=== PATIENT | male | born 1980 | race American Indian/Alaskan Native ===

== ENCOUNTER 2021-07-20 13:31 | Outpatient (CLI) | payer OTHER ==
--- NOTE | 2021-07-20 17:06 | Ultrasound Report ---
ULTRASOUND THYROID INDICATION / CLINICAL INFORMATION: THYROID GOITER. COMPARISON: None available. FINDINGS: RIGHT LOBE: Size (cm) = 8.5 x 6.3 x 4.6 cm. LEFT LOBE: Size (cm) = 5.9 x 2.5 x 1.4 cm. ISTHMUS: Thickness (cm) = 0.5 cm. APPEARANCE: Heterogeneous. SMALL NODULES < 1 cm: None. NODULES >= 1 cm or SUSPICIOUS FEATURES (up to 4): - NODULE # 1 - Location: Right mid/lower - Maximum Size (cm): 6.2 cm - Significant Change (>= 20% in 2 dim. & inc. >= 2mm): No prior study - Composition: Solid = 2 points - Echogenicity: Hyperechoic or Isoechoic = 1 point - Shape: [id number]-[id number]-[id number] = 0 points - Margin: Smooth = 0 points - Echogenic Foci: Punctate echogenic foci = 3 points - Additional Echogenic Foci: None = 0 points - Additional Findings: None. - ACR TI-RADS Score / Category = 6 points / TI-RADS 4 - NODULE # 2 - Location: Right Upper - Maximum Size (cm): 2.5 cm - Significant Change (>= 20% in 2 dim. & inc. >= 2mm): No prior study - Composition: Solid = 2 points - Echogenicity: Hyperechoic or Isoechoic = 1 point - Shape: [id number]-[id number]-caei = 3 points - Margin: Smooth = 0 points - Echogenic Foci: None = 0 points - Additional Echogenic Foci: None = 0 points - Additional Findings: None. - ACR TI-RADS Score / Category = 6 points / TI-RADS 4 - No additional suspicious thyroid nodules. LYMPH NODES: No abnormal lymph nodes. PARATHYROID GLANDS: No abnormal parathyroid glands. ADDITIONAL FINDINGS: None. IMPRESSION: 1. Right mid/lower thyroid nodule measures 6.2 cm and is TI RADS category 4. Recommend FNA. 2. Right upper thyroid nodule measures 2.5 cm and is TI RADS category 4. Recommend FNA. ACR TI-RADS Thyroid Nodule Recommendations TI-RADS 1 (0 pts) -- BENIGN. - No Fine Needle Aspirate biopsy (FNA) or follow-up. TI-RADS 2 (1-2 pts) -- NOT SUSPICIOUS. - No FNA or follow-up. TI-RADS 3 (3 pts) -- MILDLY SUSPICIOUS. - >= 2.5 cm: FNA. - 1.5-2.4 cm: Follow up at 1, 3, 5 years. - < 1.5 cm: No follow up. TI-RADS 4 (4-6 pts) -- MODERATELY SUSPICIOUS. - >= 1.5 cm: FNA. - 1.0-1.4 cm: Follow up at 1, 2, 3, 5 years. - < 1.0 cm: No follow up. TI-RADS 5 (7+ pts) -- HIGHLY SUSPICIOUS. - >= 1.0 cm: FNA. - 0.5-0.9 cm: Follow annually for 5 years. - 0.5 cm: No follow up. REFERENCE: ACR Thyroid Imaging, Reporting and Data System (TI-RADS): White Paper of the ACR TI-RADS C ommittee. J AM Zoila Radiol 2017;14:587-595. NOTE: Nodules < 1 cm do not typically require follow-up or FNA unless there are suspicious features. NOTE: Nodule size maximum dimension determines whether a given lesion should be biopsied or followed. NOTE: If multiple nodules meet criteria for FNA, only the two (2) most suspicious nodules should be b iopsied. In addition, FNA of any suspicious cervical nodes should be biopsied. NOTE: Predominantly Cystic nodules and Spongiform nodules, composed predominantly (>50%) of small cys tic spaces, are considered benign (TI-RADS 1) regardless of other criteria. Scribed by: Darlyn Archuleta RDMS, RVT Scribed: 07/20/2021 3:57 PM I have reviewed the images, agree with this report, and edited this report as needed. Signer Name: Lamine Manriquez MD Signed: 07/20/2021 5:01 PM Workstation Name: [id number]
== END 2021-07-20 13:32 | disposition home or self-care (01) ==
LOC: US 13:31
PROVIDERS: ATTEND Internal Medicine
DX: E04.2 Nontoxic multinodular goiter (principal); E04.8 Other specified nontoxic goiter
CPT/HCPCS: 76536